=== PATIENT | male | born 1955 | race Caucasian/White ===

== ENCOUNTER 2018-11-11 08:35 | Outpatient (CLI) | payer MEDICARE ==
--- NOTE | 2018-11-11 11:33 | SJPRAD ---
LEFT HAND 3 VIEWS: Date: 11/11/18 HISTORY: Joint pain. COMPARISON: None. FINDINGS: There are erosive changes involving the first, second, and possibly third metacarpophalangeal joint s paces. Additional erosive changes are not appreciated. No fracture. IMPRESSION: Erosive changes involving the first, second, and possibly third metacarpophalangeal joint spaces. POS: CHUNG
--- NOTE | 2018-11-11 11:33 | SJPRAD ---
LEFT RIBS FOUR VIEWS: Indication: Left chest pain. FINDINGS: A pacemaker device obscured detail in the lateral left ribs. No evidence of left rib fracture identif ied. No left rib lesion is identified. Left lung appears well aerated and clear. IMPRESSION: No acute left rib lesion identified. POS: H
[2018-11-11 17:03] LABS: #Basophils 0.1 thou/uL (0.0-0.2); #Eosinphils 0.1 thou/uL (0.0-0.7); #Lymphocytes 1.8 thou/uL (1.20-3.40); #Monocytes 0.5 thou/uL (0.11-0.59); #Neutrophils 1.5 thou/uL (1.40-6.50); %Basophils 1.3 % (0.0-1.0); %Eosinophils 2.9 % (0.0-10.0); %Lymphocytes 45.1 % (21.0-51.0); %Neutrophils 37.7 % (42.0-75.0); MDiff Complete? YES; Macrocytosis SLIGHT = 6-15 cells (100X) (0-5/hpf); Mean Corpuscular HGB CONC 34.1 g/dL (32.0-36.0); Mean Corpuscular Hemoglobin 35.6 pg (27.0-31.0); Mean Platelet Volume 7.1 fL (7.4-10.4); Platelet Count 149 thou/uL (130-400); Platelet Morphology Comment Appears Adequate; RBC Distribution Width 12.8 % (11.5-14.5); Red Blood Cell (RBC) Count 4.21 mill/uL (4.70-6.10); White Blood Cell (WBC) Count 4.1 thou/uL (4.8-10.8)
[2018-11-11 17:04] LABS: ALT (SGPT) 39 U/L (8-55); AST (SGOT) 25 U/L (5-34); Alkaline Phosphatase 91 U/L (40-150); Anion Gap 12 mmol/L (10-20); BUN (Urea Nitrogen) 13 mg/dL (8.4-25.7); Bilirubin, Total 0.3 mg/dL (0.2-1.2); Calc. Creatinine Clearance 0 mL/min (70-130); Calcium 9.4 mg/dL (7.8-10.44); Carbon Dioxide 28 mmol/L (23-31); Cardiac Risk 3.3 (Less than 4.5); Chloride 103 mmol/L (98-107); Cholesterol 279 mg/dl (< 200 Desired); Estimated GFR-MDRD Greater than 90; Globulin 2.9 g/dL (2.4-3.5); Glucose 107 mg/dL (80-115); HDL Cholesterol 85 mg/dL (>60 Neg Risk); LDL Cholesterol, Calculated 177 mg/dL; Potassium 5.2 mmol/L (3.5-5.1); Protein, Total 6.9 g/dL (5.8-8.1); Sodium 138 mmol/L (136-145); Triglycerides 83 mg/dL (Less than 150)
== END 2018-11-11 08:36 | disposition home or self-care (01) ==
LOC: MWLC RAD 08:35
PROVIDERS: ATTEND Family Medicine
DX: M25.542 Pain in joints of left hand (principal); R07.9 Chest pain, unspecified
CPT/HCPCS: 80053; 80061; 85025

== ENCOUNTER 2019-01-05 11:29 | Inpatient (IN) | payer MEDICARE ==
[2019-01-05] MEDS ORDERED: Metoprolol Tartrate 5 MG/5 ML VIAL ONE (11:55)
[2019-01-05] MEDS ORDERED: Amiodarone 150 MG/3 ML VIAL ONE ×2 (11:55→12:30)
[2019-01-05 11:59] LABS: #Basophils 0.1 thou/uL (0.0-0.2); #Lymphocytes 1.5 thou/uL (1.20-3.40); #Monocytes 0.6 thou/uL (0.11-0.59); %Basophils 1.1 % (0.0-1.0); %Eosinophils 0.9 % (0.0-10.0); %Lymphocytes 28.7 % (21.0-51.0); %Neutrophils 58.3 % (42.0-75.0); Hemoglobin 13.4 g/dL (14.0-18.0); Mean Corpuscular HGB CONC 33.9 g/dL (32.0-36.0); Mean Corpuscular Hemoglobin 35.1 pg (27.0-31.0); Mean Platelet Volume 7.6 fL (7.4-10.4); Platelet Count 183 thou/uL (130-400); RBC Distribution Width 12.6 % (11.5-14.5); Red Blood Cell (RBC) Count 3.81 mill/uL (4.70-6.10); White Blood Cell (WBC) Count 5.1 thou/uL (4.8-10.8)
--- NOTE | 2019-01-05 12:02 | RAD ---
XR Chest 1 View Portable HISTORY: Shortness of breath COMPARISON: None FINDINGS: The heart size is borderline. A left-sided AICD is present. There is pulmonary vascular con gestion. No lobar consolidation, pneumothoraces or large effusions are seen. A small right pleural effusion may be present.
[2019-01-05 12:22] LABS: ALT (SGPT) 60 U/L (8-55); AST (SGOT) 41 U/L (5-34); Albumin 3.9 g/dL (3.4-4.8); Alkaline Phosphatase 59 U/L (40-150); Anion Gap 12 mmol/L (10-20); BUN (Urea Nitrogen) 26 mg/dL (8.4-25.7); Bilirubin, Total 0.6 mg/dL (0.2-1.2); CK (CPK) 79 U/L (30-200); Calc. Creatinine Clearance 0 mL/min (70-130); Calcium 8.7 mg/dL (7.8-10.44); Carbon Dioxide 28 mmol/L (23-31); Chloride 98 mmol/L (98-107); Estimated GFR-MDRD 67; Globulin 2.4 g/dL (2.4-3.5); Glucose 161 mg/dL (80-115); Lipase 9 U/L (8-78); Potassium 4.7 mmol/L (3.5-5.1); Protein, Total 6.3 g/dL (5.8-8.1); Sodium 133 mmol/L (136-145)
[2019-01-05] MEDS ORDERED: Acetaminophen 325 MG TAB PO PRN (13:35)
[2019-01-05] MEDS ORDERED: Ondansetron ODT 4 MG TAB PO PRN (13:35)
[2019-01-05 13:54] LABS: INR-International Normal Ratio 3.9; Prothrombin Time 38.5 SEC (12.0-14.7)
--- NOTE | 2019-01-05 14:54 | HP ---
PRIMARY CARE PROVIDER: Dr. Kaplan. SUBSORTER: Dr. Campoverde. HISTORY OF PRESENT ILLNESS: The patient was referred to [facility] by [facility]. The patient noted legs were swelling. He has been short of breath for a significant number of days with suddenly worse short of breath today. He notes no difference in his shortness of breath between sitting , standing, etc. He denies any true chest pain, although he says his chest feels tight. He does say he has sweats. It suddenly became worse sitting on his shower. He was put on BiPAP in the emergency room. He was noted to have an abnormal heart rhythm. Dr. Danielle was called. He has been put on amiodarone. PAST MEDICAL HISTORY: Congestive heart failure, coronary artery disease. He had angioplasty without a PCI in 1992. He has hypertension, seizure disorder, atrial fibrillation. He is on chronic anticoagulation with warfarin. MEDICATIONS: Include: 1. Coreg 25 mg twice a day. 2. Dilantin 100 mg twice a day. 3. Fenofibrate 45 mg a day. 4. Lasix 40 mg twice a day. 5. Gabapentin 300 mg 3 times a day. 6. Isosorbide dinitrate 20 mg twice a day. 7. Metanx, unknown dose. 8. Sotalol 80 mg twice a day. 9. Coumadin 5 mg 4 days a week, 6 mg 3 days 10. Niacin 500 mg a day. 11. Aspirin 81 mg a day. 12. Vitamin D3. ALLERGIES: NO KNOWN DRUG ALLERGIES. PAST SURGICAL HISTORY: Total hip replacement on the right, ICD placement in 2007, basal cell carcinoma removed from his nose. FAMILY HISTORY: No coronary artery disease, diabetes, heart failure, etc. . at bedside. DNAR status. She confirmed her name is Kary. He smokes half pack a day. No alcohol. REVIEW OF SYSTEMS: GENERAL: Occasional dizziness. No fainting, fever, chills. EYES: He wears glasses. No double vision, blurred vision, flashing light. EAR NOSE AND THROAT: No ear pain, no drainage. No nasal bleeding. No trouble swallowing. CARDIAC: See present illness. RESPIRATIONS: Marked shortness of breath. He has had no wheezing. No cough. No asthma. GASTROINTESTINAL: He has constipation. No diarrhea. No abdominal pain, nausea , vomiting. GENITOURINARY: He has decreased stream. He strains to pass his urine. Little blood. MUSCULOSKELETAL: Marked swelling in his legs, which he says has gotten much worse just recently. NEUROLOGICAL: No strokes, seizures, or focal weakness. PSYCHIATRIC: No anxiety, depression. SKIN: Easy bruising. No rash. PSYCHIATRIC: No anxiety, depression. HEME/LYMPH: No tender or swollen lymph nodes in the axilla, inguinal, cervical area. PHYSICAL EXAMINATION: VITAL SIGNS: Blood pressure 94/78 to 109/85, pulse 120, respirations 18-24, O2 90 on 4 L. He is currently on BiPAP at 94% sat, temperature recorded 98.1. HEENT: Examination of his head eyes, ears, nose, and throat reveals pupils are equal, round, reactive to light. Extraocular movements are intact. Tympanic membrane is clear. Nose clear. Oral mucous membranes are wet. Dental hygiene is good. NECK: No jugular venous distention. CHEST: Rales in entire posterior chest. HEART: Basically regular rhythm. HEART: Sounds distant. No murmurs appreciated. ABDOMEN: Soft, somewhat distended and tympanitic. Bowel sounds present. No bruit, hepatosplenomegaly. EXTREMITIES: 3+ edema. No cyanosis, clubbing. Pulses, carotid, radial, femoral and dorsalis pedis pulses intact. HEME/LYMPH: No tender or swollen lymph nodes in axilla, inguinal, cervical area. NEUROLOGICAL: Cranial nerves 2 through 12 are intact. Moves all extremities. Toes downgoing. IMAGING STUDIES: EKG, slow ventricular tachycardia with white bundle-branch block pattern, reviewed by me. Chest x-ray reveals marked pulmonary vascular congestion. Left-sided AICD reviewed by me. LABORATORY DATA: Metabolic profile: Glucose 161, BUN 26, sodium 133, AST 41, ALT 60, otherwise normal. Troponin elevated at 0.038. BNP 2122, hemoglobin 13.4, white cell count 5.1, platelet count 183,000. ADMITTING DIAGNOSES: 1. Acute respiratory failure with hypoxemia. 2. Zxses-za-grxbaxd systolic heart failure. 3. Ventricular tachycardia. 4. Coronary artery disease. 5. Hypertension. PLAN: Admit to intensive care unit. Continue BiPAP. Cardiology consult. The patient put on amiodarone by Dr. Danielle, continue. We will obtain D-dimer, PT, INR. Lasix 40 mg q.12 hours. We will hold home medicines until further data is available. Job ID: [id number] MTDD
[2019-01-05] MEDS ORDERED: Furosemide 100 MG/10 ML VIAL ONE (15:09)
[2019-01-05 15:46] LABS: Troponin I 0.031 ng/mL (< 0.028)
--- NOTE | 2019-01-05 16:06 | PDOC.EVN ---
Event Note - Event Note Event Note: INR 3.8, hold coumadin
--- NOTE | 2019-01-05 16:38 | PDOC.EVN ---
Event Note - Event Note Event Note: converted in ED to atrial pacing with ventrilar responce ti
--- NOTE | 2019-01-05 17:26 | PDOC.EVN ---
Event Note - Event Note Event Note: amiodarone and dilantin can cause dilantin toxicity, will change antiseizure med to keppra 500mg bid
--- NOTE | 2019-01-05 17:31 | ULT ---
Bilateral lower extremity venous Doppler ultrasound: 01/05/2019 COMPARISON: None HISTORY: Swelling, edema, assess for DVT TECHNIQUE: Multiplanar grayscale sonographic imaging of the venous structures of the bilateral lower extremities obtained with color flow and spectral analysis FINDINGS:Bilateral common femoral vein, greater saphenous vein, profunda femoral vein, femoral vein, popliteal vein, and posterior tibial vein appear patent. Normal blood flow, augmentation, and compression within the deep venous system. No evidence for DVT. IMPRESSION: No evidence for deep venous thrombosis of either lower extremity.
--- NOTE | 2019-01-05 17:37 | ULT ---
ULTRASOUND RENAL: DATE: 01/05/2019 HISTORY: 63-year-old male with hydronephrosis FINDINGS: Right kidney: 11 x 4.5 x 5 cm Left kidney: 11 x 6 x 4.5 cm Unremarkable urinary bladder with volume of 75 mL No moderate sized or large cystic or solid renal lesion. No hydronephrosis. IMPRESSION: Negative
[2019-01-05 17:57] VITALS: BMI 31.1
[2019-01-05] MEDS: Furosemide 40 MG/4 ML VIAL SLOW IVP SCH (18:14)
[2019-01-05 18:43] LABS: Troponin I 0.026 ng/mL (< 0.028)
[2019-01-05] MEDS: Famotidine/PF 20 mg/2ml Vial SLOW IVP SCH (20:07)
[2019-01-05] MEDS: levETIRAcetam 500 MG TAB PO SCH (20:07)
--- NOTE | 2019-01-05 21:23 | CON ---
DATE OF CONSULTATION: 01/05/2019 REASON FOR CONSULTATION: Wide-complex tachycardia, congestive heart failure. PRIMARY FOREST PATROLMAN: Yasmani Campoverde MD HISTORY OF PRESENT ILLNESS: Mr. Luis F Chavez is a very pleasant 63-year-old gentleman. He had a history of a myocardial infarction in 1992, treated with tPA, then balloon angioplasty with subsequent reocclusion. The patient subsequently had ejection fraction 10% to 15% and underwent defibrillator implantation by Dr. Eusebio Mcintosh over 6 years ago. The patient states he has not seen Dr. Campoverde in many years. Recently, he has been having increasing amounts of lower extremity edema, increasing shortness of breath and chest discomfort. Finally came to the emergency room, found to be in a wide-complex tachycardia and also short of breath. OTHER HISTORY: 1. Coronary artery disease as outlined above. 2. Congestive heart failure, systolic, chronic. MEDICATIONS: Here include; 1. Metoprolol 5 mg IV twice. 2. Amiodarone. At home; he is taking, 1. Coumadin. 2. Niacin. 3. Aspirin. 4. Vitamin D. 5. Isosorbide. 6. Furosemide. 7. Fenofibrate. 8. Dilantin. 9. Coreg. ALLERGIES: NONE KNOWN. SOCIAL HISTORY: Very limited. He is on a BiPAP right now. REVIEW OF SYSTEMS: CONSTITUTIONAL: No significant weight loss. VISION: No changes. HEARING: No changes. PULMONARY: Shortness of breath. CARDIAC: Chest pain and shortness of breath. GASTROINTESTINAL: No nausea, vomiting, or diarrhea. SKIN: No rashes. NEUROLOGIC: No unilateral weakness or numbness. PSYCHIATRIC: No unusual depression or anxiety. PHYSICAL EXAMINATION: GENERAL: This is an ill-appearing 63-year-old gentleman, on a BiPAP. VITAL SIGNS: Blood pressure approximately 100 systolic, pulse is now 110, it is regular. LUNGS: Bibasilar rales. CARDIAC: Tachycardiac for rest. I do not hear murmur, rub, or gallop. ABDOMEN: Obese, nontender. EXTREMITIES: No clubbing or cyanosis. There is moderate edema. SKIN: Warm and dry. LABORATORY DATA: So far, hemoglobin is 13.4, hematocrit 39.5. INR was 3.9. ASSESSMENT: 1. Congestive heart failure, systolic, acute on chronic, pacemaker defibrillator. 2. Wide-complex tachycardia. PLAN: 1. Intravenous Lasix. 2. He is on amiodarone. 3. We will interrogate the pacemaker defibrillator. Further recommendations following this. Also give intravenous Lasix and trying to obtain further records as well. Job ID: [id number]
[2019-01-05] MEDS: Amiodarone 450 MG in Dextrose 5% in Water 250 ML IVPB SCH (22:06)
--- NOTE | 2019-01-05 22:27 | OP ---
DATE OF PROCEDURE: 01/05/2019 PROCEDURE PERFORMED: This is an ICD noninvasive program stimulation and arrhythmia paced termination report as well as ICD reprogramming. REASON FOR PROCEDURE: Mr. Chavez is a 63-year-old man with history of inferior HI, dual-chamber ICD in place, presented with slow ventricular tachycardia. DESCRIPTION OF THE PROCEDURE: The patient's ventricular arrhythmia was monitored and continued at about 115 to 120 beats per minute range. The ventricular tachycardia zone originally was programmed at 150 beats per minute for monitor and actual treatment zone was 171 beats per minute. The patient after interrogation device and ventricular burst therapy was delivered at 400, 380, eventually down to 300 milliseconds. Initially a faster ventricular tachycardia episode was induced at about 400 beats per minute, but the repeated ventricular burst pacing eventually terminated the arrhythmia. No ICD shock was necessary. The returning rate is atrial paced rhythm at 60 beats per minute. EKGs were performed revealing atrial paced rhythm, rate of 61 beats per minute, QRS 104, QTc 450 milliseconds. Without pacing the rates were 39 beats per minute. QTc was measured to 379 milliseconds. No significant QT prolongation is seen. The defibrillator was reprogrammed lowering the ventricular tachycardia treatment zone to 110 beats per minute. Also upper rate tracking was lowered to 100 beats per minute. A total of 9 ATP therapies were programmed in the initial VT1 zone. CONCLUSION: Successful ICD pace terminate of the device. PLAN: 1. Continue amiodarone loading and CHF optimization diuresis. 2. Long-term possible ablation therapy. Job ID: [id number]
--- NOTE | 2019-01-05 23:02 | CON ---
DATE OF CONSULTATION: 01/05/2019 HISTORY OF PRESENT ILLNESS: I am seeing Mr. 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 His problems are: 1. Newly found sustained but slow ventricular tachycardia with initial rates of 123 beats per minute. a. Rates below ICD treatment thresholds. 2. Chronic systolic congestive heart failure with ischemic cardiomyopathy with acute fluid overload. a. History in favor NM in the past. 3. History of paroxysmal atrial fibrillation with RVR suppressed with sotalol. 4. History of sinus node dysfunction. 5. History of dual-chamber ICD implant, recurrent RV lead revision in January 2017 with a new [employer]tr[employer] device. ALLERGIES: NONE. MEDICATIONS: Currently included: 1. Coreg 25 twice daily. 2. Dilantin. 3. Fenofibrate. 4. Furosemide. 5. Gabapentin. 6. Isosorbide dinitrate. 7. Metanx. 8. Sotalol 80 mg twice daily. 9. Coumadin. 10. Niacin. 11. Aspirin. 12. Vitamin D3. SUBJECTIVE: Mr. Chavez is here with symptoms of progressing dyspnea for last 2-3 weeks. His legs are swollen, he cannot lay down and exertions make him very short of breath. Denies true angina, but his chest feels tight. He has significant sweats. His dyspnea finally worsened, hence he came to the ER. He was put on BiPAP in the ER and he was found to have rapid heart beats. EKG suggestive of ventricular tachycardia. I was consulted for further management. Currently, he is still dyspneic, breathing on BiPAP reasonably comfortably in the bed. No dizziness at this point. No chest pains. No fever, chills, or cough. He was started on IV amiodarone and heart rates are somewhat improved, currently at 114 beats per minute, still in VT. Rest of 12-point system otherwise unremarkable. OBJECTIVE: VITAL SIGNS: The initial blood pressure is 109/85, heart rate 123, respirations 22, O2 sats 90 on 4 L of oxygen. GENERAL: Physical exam is somewhat pale-appearing man in no apparent distress. NECK: Supple. Jugular veins difficult to visualize. CHEST: Coarse without crackles. HEART: Sounds are regular to rate and rhythm. No murmur or gallop, but tachycardic. ABDOMEN: Benign. Bowel sounds positive. EXTREMITIES: Without edema, clubbing, or cyanosis. Pulses are adequate. NEUROLOGIC: The patient is nonfocal. MUSCULOSKELETAL: Without joint deformity. SKIN: Without rash. DATABASE: EKG is reviewed revealing wide-complex rhythm at a rate of 123 beats per minute with a wide QRS, right bundle and northwest axis in morphology. No clear P-waves are visible. Interrogation ICD though reveals dual-chamber ICD with ongoing wide-complex rhythm, which is below ventricular tachycardia treatment cutoff at 130 to 140 beats per minute. OptiVol measurements also reveal fluid overload. Otherwise, adequate function is seen. LABORATORY DATA: White count is 5.1, hemoglobin 13.4, platelet count is 183. Sodium 133, potassium 4.7, BUN is 26, creatinine 1.1, AST, ALT is 41 and 60. Troponin I is 0.038 and 0.031. BNP is 2121. ASSESSMENT AND PLAN: Mr. Chavez is a pleasant 63-year-old male with history of congestive heart failure and ischemic cardiomyopathy. He actually has a history of inferior myocardial infarction, dual-chamber implantable cardioverter defibrillator in place. He also has history of paroxysmal atrial arrhythmias previously, it is well suppressed with sotalol. Now presenting with progressive fluid overload, so he is documented to be in ventricular tachycardia. The duration is unclear. It is below cutoff and did not receive therapy. The VT clearly is with VA dissociation. Currently on amiodarone without successful break yet. ASSESSMENT: 1. I will attempt antitachycardia pacing termination of the arrhythmia. 2. Continue monitoring on IV amiodarone, stop sotalol. Monitor QT to avoid torsade. We will increase the base rate. 1. Cardiac evaluation as per Dr. Danielle. 2. We will consider VT ablation on recovery after medical stabilization. 3. Fluid overload, likely require diuresis. Job ID: [id number] [facility]
[2019-01-06 06:08] LABS: #Eosinphils 0.1 thou/uL (0.0-0.7); #Lymphocytes 1.7 thou/uL (1.20-3.40); #Monocytes 0.7 thou/uL (0.11-0.59); #Neutrophils 3.3 thou/uL (1.40-6.50); %Basophils 0.8 % (0.0-1.0); %Eosinophils 1.5 % (0.0-10.0); %Lymphocytes 28.7 % (21.0-51.0); %Monocytes 11.8 % (0.0-10.0); %Neutrophils 57.2 % (42.0-75.0); Hemoglobin 12.6 g/dL (14.0-18.0); Mean Corpuscular HGB CONC 33.7 g/dL (32.0-36.0); Mean Corpuscular Hemoglobin 35.2 pg (27.0-31.0); Mean Platelet Volume 7.8 fL (7.4-10.4); Platelet Count 151 thou/uL (130-400); RBC Distribution Width 12.7 % (11.5-14.5); Red Blood Cell (RBC) Count 3.58 mill/uL (4.70-6.10); White Blood Cell (WBC) Count 5.8 thou/uL (4.8-10.8)
[2019-01-06] MEDS: Furosemide 40 MG/4 ML VIAL SLOW IVP SCH ×2 (06:28→14:57)
[2019-01-06 06:31] LABS: Anion Gap 12 mmol/L (10-20); BUN (Urea Nitrogen) 20 mg/dL (8.4-25.7); Calc. Creatinine Clearance 116 mL/min (70-130); Calcium 8.8 mg/dL (7.8-10.44); Carbon Dioxide 28 mmol/L (23-31); Estimated GFR-MDRD Greater than 90; Glucose 90 mg/dL (80-115); Potassium 4.6 mmol/L (3.5-5.1)
[2019-01-06 06:42] LABS: Chloride 99 mmol/L (98-107); Sodium 134 mmol/L (136-145)
[2019-01-06] MEDS: Carvedilol 25 MG TAB PO SCH ×2 (09:39→18:13)
[2019-01-06] MEDS: Famotidine/PF 20 mg/2ml Vial SLOW IVP SCH ×2 (09:39→20:13)
[2019-01-06] MEDS: Aspirin Chewable 81 MG TAB PO SCH (09:39)
[2019-01-06] MEDS: Enoxaparin Sodium 40 MG/0.4 ML SYRINGE SC SCH (09:39)
[2019-01-06] MEDS: levETIRAcetam 500 MG TAB PO SCH ×2 (09:39→20:13)
--- NOTE | 2019-01-06 12:11 | PDOC.PN ---
- Subjective Encounter Start Date: 01/06/19 Encounter Start Time: 12:09 Subjective: defib triggered 3 times this AM - Objective Resuscitation Status - Order Detail: 01/05/19 13:31 Resuscitation Status Routine Resuscitation Status: DNAR: NO Resuscitation Discussed with: -marilyn CORONA Reviewed: Yes Vital Signs & Weight: Vital Signs (12 hours) Temp 01/06/19 10:39 97.3 F L 01/06/19 07:10 97.0 F L 01/06/19 04:00 97.2 F L Weight Weight 204 lb Most Recent Monitor Data Heart Rate from ECG 71 NIBP 99/64 NIBP BP-Mean 75 Respiration from ECG 22 SpO2 94 I&O: 01/05/19 01/06/19 01/07/19 06:59 06:59 06:59 Intake Total 630 Output Total 1450 Balance -820 Result Diagrams: 01/06/19 04:28 01/06/19 04:28 Phys Exam - Physical Examination Neck: no JVD post rales Cardiovascular: RRR, no significant murmur Gastrointestinal: soft, positive bowel sounds Musculoskeletal: no edema Dx/Plan (1) Acute respiratory failure with hypoxemia Code(s): J96.01 - ACUTE RESPIRATORY FAILURE WITH HYPOXIA Status: Acute (2) Acute on chronic systolic (congestive) heart failure Code(s): I50.23 - ACUTE ON CHRONIC SYSTOLIC (CONGESTIVE) HEART FAILURE Status : Acute (3) Ventricular tachycardia Code(s): I47.2 - VENTRICULAR TACHYCARDIA Status: Acute (4) CAD (coronary artery disease) Code(s): I25.10 - ATHSCL HEART DISEASE OF [place] CORONARY ARTERY W/O ANG PCTRS Status: Acute Qualifiers: Coronary Disease-Associated Artery/Lesion type: hoh artery [place] vs. transplanted heart: hoh heart Associated angina: without angina Qualified Code(s): I25.10 - Atherosclerotic heart disease of hoh coronary artery without angina pectoris (5) HTN (hypertension) Code(s): I10 - ESSENTIAL (PRIMARY) HYPERTENSION Status: Chronic Qualifiers: Hypertension type: essential hypertension Qualified Code(s): I10 - Essential (primary) hypertension - Plan iv amiodarone started -: cont iv diuresis -: rpt cxr tomorrow -: cont asa,coreg * .
[2019-01-06] MEDS ORDERED: Amiodarone 150 MG, Admixture Fee 1 EACH in Dextrose 5% in Water 100 ML IVPB SCH (12:15)
--- NOTE | 2019-01-06 12:25 | PDOC.CTH ---
Cardiology Progress Note - Subjective EP PROGRESS NOTE: 01/06/19 Mr. Chavez is here with symptoms of progressing dyspnea for last 2-3 weeks. His legs are swollen, he cannot lay down and exertions make him very short of breath. Denies true angina, but his chest feels tight. He has significant sweats. His dyspnea finally worsened, hence he came to the ER. He was put on BiPAP in the ER and he was found to have rapid heart beats. EKG suggestive of ventricular tachycardia. I was consulted for further management. He was in a slow VT, below detection rates of his ICD setting. Sotalol was stopped. VT detect rates have been adjusted. 01/06- he was started on amio gtt with bolus. he had recurrent VT rates ~115. ICD VT zone and ATP therapies were once again adjusted. Currently, he is still dyspneic, was using BiPAP reasonably comfortably in the bed. No dizziness at this point. No chest pains. No fever, chills, or cough. Rest of 12-point system otherwise unremarkable. - Objective Vital Signs Temp 01/06/19 10:39 97.3 F L 01/06/19 07:10 97.0 F L 01/06/19 04:00 97.2 F L Weight 204 lb 01/05/19 01/06/19 01/07/19 06:59 06:59 06:59 Intake Total 630 Output Total 1450 Balance -820 - Physical Examination General/Neuro: alert & oriented x3, NAD Neck: carotid US brisk, no JVD present Lungs: CTA, unlabored respirations Heart: PMI normal Abdomen: NT/ND, soft - Telemetry Telemetry Rhythm: SR - Labs Result Diagrams: 01/06/19 04:28 01/06/19 04:28 Troponin/CKMB CK-MB (CK-2) 3.0 ng/mL (0-6.6) 01/05/19 11:43 Troponin I 0.026 ng/mL (< 0.028) 01/05/19 18:07 - Assessment/Plan 1. Ventricular tachycardia -initial rates of 123 beats per minute. (Rates below ICD treatment detection) -amiodarone gtt infusing. Ordered additional bolus with continued gtt therapy. - K 4.6 and Mg 2.0 on 01/06 -keep K>/=4.0 and Mg >/=2.0 -residential ablation after stabilization of CHF. 2. Chronic systolic congestive heart failure with ischemic cardiomyopathy with acute fluid overload. - diurese 3. Dual-chamber ICD implant, - VT zones adjusted as amiodarone loading continues. Currently set to 105 bpm with aggressive ATP therapies - 3 ICD discharges this AM Repeat 12 lead EKG at 1400 today. monitor electrolytes. Continue amiodarone gtt and repeat bolus as ordered
[2019-01-06 13:32] VITALS: BP 102/59
[2019-01-06] MEDS: Amiodarone 450 MG in Dextrose 5% in Water 250 ML IVPB SCH (14:28)
--- NOTE | 2019-01-06 14:36 | CON ---
DATE OF CONSULTATION: HISTORY OF PRESENT ILLNESS: Luis F Chavez is a 63-year-old gentleman, who is 204 pounds, 5 feet and 8 inches, presented to the ER yesterday with lower extremity swelling and shortness of breath. He was found to be in a rapid SVT, started on amiodarone. This morning, he is in the MICU. Reason for consult; 2 pack a day smoker for most of his life, cut back to half a pack a day. Episodic coughing, but no wheezing. No chest pain. He had difficulty breathing; although, he blamed it on his cardiac arrhythmias and congestive heart failure issues. No prior history of TB or pneumonia. PAST MEDICAL HISTORY: Cardiac stents, CHF, and ICD. PAST SURGICAL HISTORY: Previous surgeries including a stent and ICD. HOME MEDICATIONS: Include; 1. Dilantin 100 two a day. 2. Fenofibrate 54. 3. Aspirin 81. 4. Coumadin 6 and 5 .. 5. Sotalol 80. 6. Metanx one capsule a day. 7. Isordil 20. 8. Gabapentin 300 three times a day. 9. Lasix 40 twice a day. 10. Coreg 25 b.i.d. 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 Alcohol, none. Tobacco, as noted. FAMILY HISTORY: Unremarkable. ALLERGIES: NONE. REVIEW OF SYSTEMS: Ten-point negative. PHYSICAL EXAMINATION: VITAL SIGNS: Saturations are 98% on 2 L, temperature 97, blood pressure 120/70, and pulse 100 and irregular. CHEST: Decreased breath sounds. No wheezing. CARDIAC: Normal S1 and S2. No gallops. ABDOMEN: No masses. EXTREMITIES: 2+ edema. NEUROLOGIC: He is awake, alert, responsive. Moves all 4 extremities. LABORATORY DATA: White count 5000, H and H of 12 and 37, and platelet count is normal. His lytes are normal. BNP is 2121. IMAGING DATA: Chest x-ray shows evidence of congestive heart failure. IMPRESSION: 1. Congestive heart failure, status post implantable cardioverter defibrillator. 2. Tobacco abuse, probably chronic obstructive pulmonary disease. 3. Chronic pain. PLAN: He is on amiodarone, which I will continue diuretics. Trial of Dulera. Bronchodilator therapy. We will follow 45 minutes of consultation time. Job ID: [id number]
[2019-01-06] MEDS ORDERED: Amiodarone HCl 150 MG in Dextrose 5% in Water 100 ML IVPB SCH (17:45)
--- NOTE | 2019-01-06 17:55 | EKG ---
Test Reason : Blood Pressure : / mmHG Vent. Rate : 074 BPM Atrial Rate : 074 BPM P-R Int : 094 ms QRS Dur : 114 ms QT Int : 454 ms P-R-T Axes : 017 048 256 degrees QTc Int : 503 ms Electronic atrial pacemaker Inferior infarct (cited on or before 05-JAN-2019) Prolonged QT Abnormal ECG When compared with ECG of 05-JAN-2019 16:25, (Unconfirmed) Serial changes of Inferior infarct Present Confirmed by DR. Michelle SLADE (3) on 01/06/2019 5:55:01 PM Referred By: [facility] Confirmed By:DR. Michelle SLADE
--- NOTE | 2019-01-06 17:56 | EKG ---
Test Reason : Blood Pressure : / mmHG Vent. Rate : 118 BPM Atrial Rate : 029 BPM P-R Int : 000 ms QRS Dur : 216 ms QT Int : 462 ms P-R-T Axes : 000 264 058 degrees QTc Int : 647 ms Wide QRS rhythm tachycardia Right bundle branch block Inferior infarct , age undetermined Abnormal ECG When compared with ECG of 06-JAN-2019 07:31, (Unconfirmed) Wide QRS rhythm has replaced Electronic atrial pacemaker Vent. rate has increased BY [address] Michelle SLADE (3) on 01/06/2019 5:56:13 PM Referred By: [facility] Confirmed By:DR. Michelle SLADE
--- NOTE | 2019-01-06 18:10 | EKG ---
Test Reason : TIMED Blood Pressure : / mmHG Vent. Rate : 071 BPM Atrial Rate : 071 BPM P-R Int : 140 ms QRS Dur : 104 ms QT Int : 460 ms P-R-T Axes : 000 064 263 degrees QTc Int : 499 ms Electronic atrial pacemaker Inferior infarct , age undetermined Abnormal ECG When compared with ECG of 06-JAN-2019 07:43, (Unconfirmed) Electronic atrial pacemaker has replaced Wide QRS rhythm Vent. rate has decreased BY [address] Michelle SLADE (3) on 01/06/2019 6:10:03 PM Referred By: [facility] Confirmed By:DR. Michelle SLADE
[2019-01-06] MEDS: Mometasone/Formoterol 120 PUFF INHALER INH SCH (18:34)
[2019-01-06] MEDS: Amiodarone HCl 450 MG in Dextrose 5% in Water 250 ML IVPB SCH (19:16)
[2019-01-06] MEDS ORDERED: Lidocaine 2% PF 100 mg/5 ml Syringe IVP SCH (19:45)
[2019-01-06] MEDS: Lidocaine 2 gm/D5W 500 ml 500 ML IVPB SCH (19:53)
[2019-01-07] MEDS: Amiodarone HCl 450 MG in Dextrose 5% in Water 250 ML IVPB SCH ×2 (03:29→14:50)
[2019-01-07] MEDS: Furosemide 40 MG/4 ML VIAL SLOW IVP SCH ×2 (05:07→14:50)
[2019-01-07 05:09] LABS: INR-International Normal Ratio 1.6; Prothrombin Time 19.5 SEC (12.0-14.7)
[2019-01-07 05:27] LABS: Cardiac Risk 3.8 (Less than 4.5)
[2019-01-07] MEDS: Mometasone/Formoterol 120 PUFF INHALER INH SCH ×2 (06:45→19:09)
[2019-01-07] MEDS ORDERED: Morphine 2 MG/ML SYRINGE SLOW IVP PRN (07:50)
[2019-01-07] MEDS ORDERED: Morphine 4 MG/ML VIAL ONE (07:51)
--- NOTE | 2019-01-07 07:53 | PRG ---
DATE OF SERVICE: 01/07/2019 SUBJECTIVE: The patient is seen and examined at bedside. He complains about some shortness of breath. There were no shocks overnight. OBJECTIVE: VITAL SIGNS: Blood pressure is 152/82, pulse is 76, respiratory rate is 26, O2 saturation is fluctuating between 91% and 93% on O2 by nasal cannula. HEENT: His head is atraumatic and normocephalic. He is in quite impressive constant movement of his upper part of the body. Pupils are responding to light properly. Sclerae are nonicteric. Oral mucosa is moist. NECK: Supple. LUNGS: Crackles and rales at both bases. No wheezing. HEART: S1 and S2, regular. No S3. No S4. ABDOMEN: Soft, nontender, and nondistended. EXTREMITIES: No clubbing or cyanosis. There is 1 to 2+ peripheral edema on both lower extremities. NEUROLOGICAL: He is alert and oriented x3. There are no any motor deficits. LABORATORY DATA: Labs showed INR of 1.6 and PT of 19.5. IMPRESSION: 1. Ventricular tachycardia. 2. Acute respiratory failure with hypoxemia secondary to congestive heart failure. 3. Acute on chronic congestive heart failure. 4. Hypertension. 5. Tardive dyskinesia. 6. History of seizures. 7. Coronary artery disease. 8. History of atrial fibrillation. 9. Chronic anticoagulation with warfarin. 10. Automatic implantable cardioverter-defibrillator. PLAN: Continue both drips of lidocaine and amiodarone. He did not have more shocks overnight. He is diuresing well. He put out almost 3000 mL for the last 24 hours. We will continue IV Lasix. We will continue his Keppra and he will continue his heart healthy diet. More recommendations from an margin clerk coming and this is going to be the main situation. Job ID: [id number]
--- NOTE | 2019-01-07 08:09 | PRG ---
DATE OF SERVICE: 01/07/2019 SUBJECTIVE: Luis F Chavez this morning is awake, alert and responsive. He is having difficulty breathing. He is having some chest pain. OBJECTIVE: VITAL SIGNS: His sats are 93%, pulse 86, blood pressure 152/62. He is hyperventilating at about 29 minutes. CHEST: No wheezing or crackles. CARDIAC: Ventricular tachycardia periodically, right now he is in sinus rhythm. ABDOMEN: Soft. LABORATORY DATA: Shows INR 1.6. Cholesterol 201. Magnesium is 2.1. Recurrent ventricular tachycardia, cardiomyopathy, CHF, and chronic pain. PLAN: Low-dose morphine is re-initiated. Otherwise, continue present cardiac care. Await input from EP. He has no resuscitation. Discussed with family as they arrive. Job ID: [id number]
[2019-01-07] MEDS: Carvedilol 25 MG TAB PO SCH ×2 (08:32→18:38)
[2019-01-07] MEDS: levETIRAcetam 500 MG TAB PO SCH ×2 (08:33→21:01)
[2019-01-07] MEDS: Famotidine/PF 20 mg/2ml Vial SLOW IVP SCH ×2 (08:33→21:01)
[2019-01-07] MEDS: Enoxaparin Sodium 40 MG/0.4 ML SYRINGE SC SCH (08:33)
[2019-01-07] MEDS: Aspirin Chewable 81 MG TAB PO SCH (08:33)
[2019-01-07 10:11] LABS: Anion Gap 13 mmol/L (10-20); BUN (Urea Nitrogen) 11 mg/dL (8.4-25.7); Calc. Creatinine Clearance 131 mL/min (70-130); Calcium 8.8 mg/dL (7.8-10.44); Carbon Dioxide 29 mmol/L (23-31); Chloride 97 mmol/L (98-107); Estimated GFR-MDRD Greater than 90; Glucose 146 mg/dL (80-115); Magnesium 2.3 mg/dL (1.6-2.6); Potassium 4.8 mmol/L (3.5-5.1); Sodium 134 mmol/L (136-145)
[2019-01-07 10:28] LABS: Actual Bicarbonate (HCO3a) 34.1 mEq/L (22-28); Calcium, Ionized 1.13 mmol/L (1.12-1.30); Carboxyhemoglobin (COHb) 1.4 gm% (0.0-3.0); Hemoglobin (Hb) 13.4 g/dL (14.0-18.0); O2 Tension (PaO2) 61.1 mmHg (> 80.0); Potassium - ABG Lab 4.04 mmol/L (3.70-5.30); pH, Arterial 7.33 (7.35-7.45)
[2019-01-07 10:30] LABS: CO2 Tension 66.8 mmHg (35.0-45.0); Puncture Site L.R.
[2019-01-07] MEDS: Lidocaine 2 gm/D5W 500 ml 500 ML IVPB SCH (14:51)
--- NOTE | 2019-01-07 17:33 | PDOC.CTH ---
Cardiology Progress Note - Subjective EP PROGRESS NOTE: 01/07/19 Mr. Chavez is here with symptoms of progressing dyspnea for last 2-3 weeks. His legs are swollen, he cannot lay down and exertions make him very short of breath. Denies true angina, but his chest feels tight. He has significant sweats. His dyspnea finally worsened, hence he came to the ER. He was put on BiPAP in the ER and he was found to have rapid heart beats. EKG suggestive of ventricular tachycardia. I was consulted for further management. He was in a slow VT, below detection rates of his ICD setting. Sotalol was stopped. VT detect rates have been adjusted. 01/06- he was started on amio gtt with bolus. he had recurrent VT rates ~115. ICD VT zone and ATP therapies were once again adjusted. Overnight he received multiple 5J shjocks after ATPs failed. IV lido 100mg bolus and 2mg/min drip was administered. No VT till the am, when IV lidocain was cit back to 1 mg/min./ This PM hgad an opther long VT run eventually pace terminated. Currently, he is still dyspneic, but improving. He is on high flow O2, off BiPAP reasonably comfortably in the bed. No dizziness at this point. No chest pains. No fever, chills, or cough. Rest of 12-point system otherwise unremarkable. - Objective Vital Signs Temp Pulse Ox 01/07/19 08:00 98.0 F 94 L Weight 200 lb 2.876 oz VS: BP 102/72, HR70, RR20, O2sat 96% 01/06/19 01/07/19 01/08/19 06:59 06:59 06:59 Intake Total 630 1750 923.7 Output Total 1450 2950 1400 Balance -820 -1200 -476.3 - Physical Examination General/Neuro: alert & oriented x3, NAD Neck: no JVD present Lungs: CTA Heart: RRR Abdomen: no HSM - Telemetry Telemetry Rhythm: SR. SMVT. - Labs Result Diagrams: 01/06/19 04:28 01/07/19 09:11 Troponin/CKMB CK-MB (CK-2) 3.0 ng/mL (0-6.6) 01/05/19 11:43 Troponin I 0.026 ng/mL (< 0.028) 01/05/19 18:07 - Assessment/Plan - Assessment/Plan 1. 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 (Rates below ICD treatment detection) - VT zones adjusted as amiodarone loading continues. Currently set to 105 bpm with aggressive ATP therapies -Multiple ICD discharges yesterday. Recent VT with ecentual ATP termination. - Recurrent episodes despite re-bolusing Amidarone, eventually requiring concomitant IV lidocain administration. - ATP therapy intermittently effective, but received multiple shocks yesterday. - Will expedite transfer to [facility] for VTablation. Dr Díaz accepting. Awaiting room availability. --amiodarone gtt infusing. Ordered additional bolus with continued gtt therapy. -keep K>/=4.0 and Mg >/=2.0 - Monitor QTc (475ms this am) 2. Chronic systolic congestive heart failure with ischemic cardiomyopathy with acute fluid overload. - diurese 3. Dual-chamber ICD implant,Adequate funtion.
[2019-01-07] MEDS ORDERED: Lidocaine 2% PF 100 mg/5 ml Syringe ONE (17:57)
[2019-01-07] MEDS ORDERED: Carvedilol 25 MG TAB PO SCH (18:00)
--- NOTE | 2019-01-07 19:02 | EKG ---
Test Reason : STAT Blood Pressure : / mmHG Vent. Rate : 125 BPM Atrial Rate : 125 BPM P-R Int : 000 ms QRS Dur : 166 ms QT Int : 410 ms P-R-T Axes : 000 246 046 degrees QTc Int : 591 ms Wide QRS tachycardia with frequent ventricular-paced complexes Right bundle branch block Lateral infarct , age undetermined Inferior infarct , age undetermined Abnormal ECG When compared with ECG of 06-JAN-2019 14:04, Electronic ventricular pacemaker has replaced Electronic atrial pacemaker Vent. rate has increased BY [address] Michelle SLADE ([id number]) on 01/07/2019 7:01:42 PM Referred By: [facility] Confirmed By:DR. Michelle SLADE
--- NOTE | 2019-01-07 19:07 | EKG ---
Test Reason : Blood Pressure : / mmHG Vent. Rate : 071 BPM Atrial Rate : 071 BPM P-R Int : 122 ms QRS Dur : 104 ms QT Int : 438 ms P-R-T Axes : -05 065 -83 degrees QTc Int : 475 ms Electronic atrial pacemaker Inferior infarct , age undetermined T wave abnormality, consider lateral ischemia Abnormal ECG When compared with ECG of 06-JAN-2019 19:26, (Unconfirmed) Electronic atrial pacemaker has replaced Electronic ventricular pacemaker Vent. rate has decreased BY [address] Michelle SLADE ([id number]) on 01/07/2019 7:07:21 PM Referred By: [facility] Confirmed By:DR. Michelle SLADE
[2019-01-08] MEDS: Amiodarone HCl 450 MG in Dextrose 5% in Water 250 ML IVPB SCH (04:00)
[2019-01-08 04:04] VITALS: TEMP 98.2
--- NOTE | 2019-01-09 10:31 | EKG ---
Test Reason : Blood Pressure : / mmHG Vent. Rate : 061 BPM Atrial Rate : 061 BPM P-R Int : 172 ms QRS Dur : 104 ms QT Int : 448 ms P-R-T Axes : 113 044 260 degrees QTc Int : 450 ms Electronic atrial pacemaker Inferior infarct , age undetermined Abnormal ECG Confirmed by RICA MAI ([id number]), editor publications TAMIA ESPINO ([id number]) on 01/09/2019 10:31:25 AM Referred By: Confirmed By:RICA MAI
--- NOTE | 2019-01-09 11:27 | EKG ---
Test Reason : Blood Pressure : / mmHG Vent. Rate : 123 BPM Atrial Rate : 119 BPM P-R Int : 000 ms QRS Dur : 178 ms QT Int : 438 ms P-R-T Axes : 000 259 043 degrees QTc Int : 627 ms Poor data quality, interpretation may be adversely affected Wide QRS tachycardia Right bundle branch block Inferior infarct , age undetermined Abnormal ECG Confirmed by GINA WEBB DO ([id number]), senior editor TAMIA ESPINO ([id number]) on 01/09/2019 11:26:57 AM Referred By: Confirmed By:GINA WEBB DO
--- NOTE | 2019-01-09 11:27 | EKG ---
Test Reason : Blood Pressure : / mmHG Vent. Rate : 123 BPM Atrial Rate : 123 BPM P-R Int : 000 ms QRS Dur : 212 ms QT Int : 374 ms P-R-T Axes : 000 266 057 degrees QTc Int : 535 ms Sinus tachycardia with Fusion complexes Right bundle branch block Inferior infarct , age undetermined Abnormal ECG Confirmed by GINA WEBB DO ([id number]), writer editor TAMIA ESPINO ([id number]) on 01/09/2019 11:27:03 AM Referred By: Confirmed By:GINA WEBB DO
--- NOTE | 2019-01-09 11:27 | EKG ---
Test Reason : Blood Pressure : / mmHG Vent. Rate : 123 BPM Atrial Rate : 123 BPM P-R Int : 000 ms QRS Dur : 214 ms QT Int : 376 ms P-R-T Axes : 000 -87 047 degrees QTc Int : 538 ms Sinus tachycardia with Fusion complexes Left axis deviation Right bundle branch block Inferior infarct , age undetermined Abnormal ECG Confirmed by GINA WEBB DO ([id number]), assistant production editor TAMIA ESPINO ([id number]) on 01/09/2019 11:26:59 AM Referred By: Confirmed By:GINA WEBB DO
== END 2019-01-08 04:15 | disposition short-term general hospital (02) | DRG 291 ==
LOC: ERS 11:29 → ERHOLD 12:55 → IMCU/EMU 17:47 → CCU 01-06 19:36
PROVIDERS: ADMIT Internal Medicine; ATTEND Internal Medicine
PROC: 4B02XTZ Measurement of Cardiac Defibrillator, External Approach (ICD-10-PCS; principal; 2019-01-05)
DX: I50.23 Acute on chronic systolic (congestive) heart failure (principal); J96.01 Acute respiratory failure with hypoxia; I47.2 Ventricular tachycardia; I11.0 Hypertensive heart disease with heart failure; I25.10 Atherosclerotic heart disease of native coronary artery without angina pectoris; G40.909 Epilepsy, unspecified, not intractable, without status epilepticus; I48.91 Unspecified atrial fibrillation; F17.210 Nicotine dependence, cigarettes, uncomplicated; I25.5 Ischemic cardiomyopathy; G89.29 Other chronic pain; G24.01 Drug induced subacute dyskinesia; I25.2 Old myocardial infarction; Z66 Do not resuscitate; Z79.01 Long term (current) use of anticoagulants; Z79.82 Long term (current) use of aspirin; Z79.899 Other long term (current) drug therapy; Z96.641 Presence of right artificial hip joint; Z95.810 Presence of automatic (implantable) cardiac defibrillator
CPT/HCPCS: 36415; 71045; 76770; 80048; 80053; 80061; 82550; 82553; 82805; 83690; 83735; 83880; 84484; 85025; 85610; 93005; 93010; 93306; 93970; 94660; 96365; 96366; 96374; 96375; 96376; J0282; J1650; J1940; J2001; J2270; J7070; S0028